=== PATIENT | male | born 1975 | race Caucasian/White ===

== ENCOUNTER → 2017-06-16 | Outpatient (CLI) | payer BC | LOC: FIMAGING 16:05 | PROVIDERS: ATTEND Surgery | DX: K76.0 Fatty (change of) liver, not elsewhere classified (principal) ==

== ENCOUNTER 2019-03-11 09:51 | Day surgery (SDC) | payer OTHER | END 2019-03-11 14:55 | disposition home or self-care (01) | LOC: FSGY 09:51 ==